=== PATIENT | female | born 1975 | race Caucasian/White ===

== ENCOUNTER 2024-03-18 06:55 | Day surgery (SDC) | payer OTHER ==
[2024-03-11 08:20] VITALS: BP 120/83
[~2024-03-18] VITALS: Ht 165.1 cm; Wt 106.8 kg
[~2024-03-18 06:55] MED LIST: ALREX5 ML; AUGMENTIN 875-1 EACH PO; AZELEX30 GM; FLONASE SENSIM5.9 ML; FLUOXETINE HCL10 MG; LACTATED RINGER'S 1,000 ML IV SCH; LIDOCAINE 1% W/ EPI 1:100,000 20 ML MDV ONE; PANTOPRAZOLE SO40 MG PO; SINGULAIR10 MG PO; SUDAFED 12-HOU120 MG PO; SYEDA 28 TABLE1 EACH; XIIDRA1 EACH OP; ZYRTEC10 MG PO
[2024-03-18] MEDS ORDERED: OXYMETAZOLINE HCL 30 ML BTL NAS SCH (07:00)
[2024-03-18] MEDS ORDERED: LIDOCAINE HCL 1% 5 ML SDV INJ ONE (07:00)
[2024-03-18] MEDS ORDERED: CEFAZOLIN SODIUM 1 GM/10 ML SYR IV SCH (07:00)
[2024-03-18] MEDS ORDERED: IBLOOD GLUCOSE TEST STRIP 1 EA TEST VI PRN ×2 (07:00→09:15)
[2024-03-18 07:09] VITALS: BP 144/63
[2024-03-18] MEDS ORDERED: TYLENOL325 MG PO (07:12)
[2024-03-18] MEDS ORDERED: MIDAZOLAM HCL 2 MG/2 ML VIAL IV ONE (07:45)
[2024-03-18] MEDS ORDERED: ondansetron HCL 4 MG/2 ML VIAL ONE (08:06)
[2024-03-18] MEDS ORDERED: DEXAMETHASONE SOD PHOS 4 MG/ML VIAL ONE (08:06)
[2024-03-18] MEDS ORDERED: ACETAMINOPHEN 1,000 MG/100 ML VIAL ONE (08:06)
[2024-03-18] MEDS ORDERED: fentaNYL citrate 100 MCG/2 ML VIAL ONE (08:06)
[2024-03-18] MEDS ORDERED: propofoL 200 MG/20 ML VIAL ONE (08:06)
[2024-03-18] MEDS ORDERED: LIDOCAINE HCL 2% 5 ML SDV ONE (08:06)
[2024-03-18] MEDS ORDERED: PROCHLORPERAZINE EDISYLATE 10 MG/2 ML VIAL IV PRN (09:15)
[2024-03-18] MEDS ORDERED: ondansetron HCL 4 MG/2 ML VIAL IV PRN (09:15)
[2024-03-18] MEDS ORDERED: HYDROmorphone HCL 1 MG/ML SYR IV PRN (09:15)
[2024-03-18] MEDS ORDERED: NALOXONE HCL 0.4 MG SYR IV PRN (09:15)
[2024-03-18] MEDS ORDERED: droPERidol 5 MG/2 ML VIAL IV PRN (09:15)
[2024-03-18] MEDS ORDERED: fentaNYL citrate 50 MCG/ML SDV IV PRN (09:15)
[2024-03-18 09:53] VITALS: BP 118/65
--- NOTE | 2024-03-18 10:11 | NUR ---
9798-PT BACK TO ROOM FROM PACU ON RA. RECEIVED REPORT FROM THAI ESCOBEDO. PT IS AWAKE. RESP EVEN AND UNLABORED. RATES PAIN 2/10. DENIES NAUSEA. DRIP PAD IS CLEAN, DRY, AND INTACT. PT DRINKING WATER. DENIES A SNACK AT THIS TIME. NO OTHER NEEDS AT THIS TIME. CALL LIGHT WITHIN REACH.
--- NOTE | 2024-03-18 10:12 | NUR ---
03/18/24 1012 Samantha Kyle 0918 PT ARRIVED IN PACU SLEEPY WITH NO C/O'S. BILAT PACKING IN PLACE WITH BUTTON TIED TO END OF NOSE AND DRIP PAD CDI. 0930 C/O 5/10 HEADACHE/SINUS DISCOMFORT. 0934 FENTANYL 50MCG GIVEN IVP. 0940 TAKING SIPS OF WATER. 0950 PAIN DOWN TO 2/10. TO DS. REPORT GIVEN TO FANNY.
[2024-03-18] MEDS ORDERED: HYDROCODONE/ACETA 5/325 TAB PO PRN (10:15)
[2024-03-18 10:49] VITALS: BP 120/77
--- NOTE | 2024-03-18 11:25 | OR ---
[facility] [address], [place] [address] Signed DATE OF OPERATION: 03/18/2024 SURGEON: Bryson Fay MD PREOPERATIVE DIAGNOSES: 1. Septal deformity. 2. Inferior turbinate hypertrophy. POSTOPERATIVE DIAGNOSES: 1. Septal deformity. 2. Inferior turbinate hypertrophy. PROCEDURES: 1. Septoplasty. 2. Cautery of the inferior turbinates. ANESTHESIA: General, LMA; PULP GRINDER, Asim PREOP HISTORY: Cristina is a 48-year-old lady with nasal obstruction, mainly right-sided headaches, found to have a septal deformity, right side spur impinging on the inferior turbinates with inferior turbinate hypertrophy. Sinus maxillofacial CT has been negative otherwise, and she is taken to the operating room for the above-mentioned procedures after failure of the medications, nasal sprays, decongestants, antihistamines, etc. OPERATIVE PROCEDURE AND FINDINGS: After informed consent, the patient was taken to the operating room, placed in the supine position, where general LMA anesthesia was induced. Patient and procedure were verified. The patient received preoperative intranasal oxymetazoline and intravenous Ancef. Headlight speculum exam of the nasal cavity showed marked good septal deformity on the right side. A large spur extending posteriorly and impinging on the inferior turbinate, which was decongested. A 1% lidocaine with epi was injected in the septal mucosa on the right side and the septal bone and cartilage deflection was removed with the Norberto. Airway was improved. Impingement corrected. The inferior turbinates were then cauterized with a long handle needle point cautery starting on the left side. Multiple transmucosal passes on the medial and inferior surface of the inferior turbinate starting anteriorly extending all the way back posteriorly. Excellent shrinkage in the turbinate was obtained. Minimal bleeding Electronically Signed By: BRYSON FAY MD 03/18/24 1125 PATIENT NAME: CRISTINA NEW OPERATIVE REPORT DATE OF : 77 REPORT #: [id number] PHYSICIAN: BRYSON FAY MD PCP: BRENDA HERBERT PAC REPORT IS CONFIDENTIAL AND NOT TO BE RELEASED WITHOUT AUTHORIZATION [facility] [address], [place] [address] Signed stopped afterwards. The same procedure on the right inferior turbinate airways bilaterally markedly improved after the procedure. Hemostasis was verified. Packing was then placed. Trimmed Merocel equal amount one piece each side coated with Neosporin tied anteriorly over a pad. The pharynx was suctioned clear of blood and secretions. The patient was then awakened, extubated, and transported to the recovery room in good condition. No complications. BLOOD LOSS: Minimal. SPECIMEN: No specimen. DRAINS: No drains. PACKING: One piece of Merocel in each nostril. Bryson Fay MD GC/GEOVANNIL /[id number] Copies: ~ Electronically Signed By: BRYSON FAY MD 03/18/24 1125 PATIENT NAME: CRISTINA NEW OPERATIVE REPORT DATE OF : 77 REPORT #: [id number] PHYSICIAN: BRYSON FAY MD PCP: BRENDA HERBERT PAC REPORT IS CONFIDENTIAL AND NOT TO BE RELEASED WITHOUT AUTHORIZATION
--- NOTE | 2024-03-18 11:27 | NUR ---
1050-PT IS AWAKE. RESP EVEN AND UNLABORED. RATES PAIN 1/10. DENIES NAUSEA. DRIP PAD WITH MODERATE AMOUNT OF RED DRAINAGE. PT WILL GET DRESSED. 1050-PT AMBULATES TO RESTROOM. 1055-PT BACK TO ROOM. DRIP PAD CHANGED.
--- NOTE | 2024-03-18 11:35 | NUR ---
1100-WENT OVER DISCHARGE INSTRUCTIONS WITH PT AND HER MOM. WENT OVER MEDICATIONS. ALL QUESTIONS ANSWERED. DRIP PAD SUPPLIES GIVEN TO PT. 1110-PT AMBULATES TO WHEEL CHAIR AND RIDE PROVIDED TO FRONT OF HOSPITAL WHERE MOM WAS WAITING WITH THE CAR.
[2024-03-18] MEDS ORDERED: SEVOFLURANE 250 ML BTL INH ONE (16:15)
== END 2024-03-18 11:10 | disposition home or self-care (01) ==
LOC: DS 06:55 → OPS 06:55 → DS 08:45 → OPS 08:45
PROVIDERS: ATTEND Otolaryngology
PROC: 09BM0ZZ Excision of Nasal Septum, Open Approach (ICD-10-PCS; principal; 2024-03-18 08:45)
DX: J34.2 Deviated nasal septum (principal); J34.3 Hypertrophy of nasal turbinates; G43.909 Migraine, unspecified, not intractable, without status migrainosus
CPT/HCPCS: 00160; J0131; J0690; J1100; J2003; J2250; J2405; J2704; J3010